=== PATIENT | male | born 1995 | race Caucasian/White ===

== ENCOUNTER 2024-02-02 09:14 | Emergency (ER) | payer OTHER ==
[2024-02-02 09:31] VITALS: BP 121/92; O2SAT 100
--- NOTE | 2024-02-02 10:12 | ED Physician Documentation ---
PD HPI BACK PAIN - Stated complaint Stated Complaint: LWR BACK PX - Chief complaint Chief Complaint: Back Pain - History obtained from History obtained from: Patient - Additional information Additional information: He developed some right low back pain about a week ago with regard to weight lifting. About 5 days ago he sneezed and it got worse. It is worse with bending and twisting and in the right low back. Also gets worse if he lifts his right leg. There is no weakness, numbness, tingling, saddle anesthesia, fevers. No history of back pain. He did take NSAIDs which were modestly helpful. PD PAST MEDICAL HISTORY - Past Medical History Past Medical History: No - Past Surgical History Past Surgical History: No - Present Medications Home Medications: Ambulatory Orders Medication Instructions Recorded Confirmed Cyclobenzaprine [Flexeril] 10 mg PO TID PRN #20 tablet 02/02/24 - Allergies Allergies/Adverse Reactions: Allergies Allergy/AdvReac Type Severity Reaction Status Date / Time No Known Drug Allergies Allergy Verified 02/02/24 09:27 - Social History Does the pt smoke?: No Smoking Status: Never smoker Does the pt drink ETOH?: Yes Does the pt have substance abuse?: No PD ED PE NORMAL - Vitals Vital signs reviewed: Yes - General General: Alert and oriented X 3, No acute distress - Back Back: Other (Muscular tenderness in the right low back without midline spinal tenderness. He is comfortable at rest but winces mildly with motion.) - Extremities Extremities: Other - Neuro Neuro: Alert and oriented X 3, Normal speech Results - Vitals Vitals: Vital Signs - 24 hr 02/02/24 09:23 Temperature 36.9 C Heart Rate 63 Respiratory 18 Rate Blood Pressure 121/92 H O2 Saturation 100 Oxygen O2 Source Room air PD Medical Decision Making - ED course ED course: This patient has seemingly uncomplicated musculoskeletal back pain. The patient has no "red flags." Specifically denies IV drug use, fevers, incontinence, saddle anesthesia. Spinal epidural abscess was considered, given that the patient has no fever, is not diabetic, has no spinal tenderness, does not use IV drugs, and has no bilateral neurologic symptoms, the diagnosis of spinal epidural abscess is considered exceedingly unlikely. Departure - Departure Disposition: 01 Home, Self Care Clinical Impression: Back pain Qualifiers: Back pain location: low back pain Chronicity: acute Back pain laterality: right Sciatica presence: without sciatica Qualified Code(s): M54.50 - Low back pain, unspecified Condition: Good Record reviewed to determine appropriate education?: Yes Instructions: ED Low Back Pain Injury Prescriptions: Cyclobenzaprine [Flexeril] 10 mg PO TID PRN #20 tablet PRN Reason: Spasms Comments: You can add the muscle relaxer to the anti-inflammatory you are already taking. We do heat and gentle stretching. I also wrote a prescription for physical t herapy, you can follow-up with a physical therapist in your area starting to call around on Sunday when they are open. Return for new or worsening symptoms. If not better in a week or 2 you should follow-up with a primary care physician in your area.
== END 2024-02-02 10:23 | disposition home or self-care (01) ==
LOC: ED 09:14
DX: M54.50 Low back pain, unspecified (principal)
CPT/HCPCS: 99282; 99283